=== PATIENT | female | born 2000 | race Hispanic/Latino ===

== ENCOUNTER → 2022-09-27 | Outpatient (CLI) | payer OTHER ==
--- NOTE | 2022-09-27 13:13 | DIREP ---
PROCEDURE:MRI - BRAIN WITHOUT CONTRAST COMPARISON:None. INDICATIONS:BRAIN LESIONS TECHNIQUE:A variety of imaging planes and parameters were utilized for visualization of suspected pathology in the brain. Images were performed without gadolinium contrast.. FINDINGS: CSF SPACES:Ventricles, cisterns, and sulci are appropriate for age. No hydrocephalus, subarachnoid hemorrhage, or mass. CEREBRUM:Within the left thalamus there is a focus of increased T2/FLAIR signal measuring 5 x 5 x 6 mm AP/transverse/craniocaudal (image 16 series 301 and FLAIR axial image 16). No restricted diffusion seen. No other additional lesions appreciated. Further evaluation limited without IV contrast. CEREBELLUM:No edema, hemorrhage, mass, acute infarction, or inappropriate atrophy. BRAINSTEM:No edema, hemorrhage, mass, acute infarction, or inappropriate atrophy. SKULL:No mass or other significant visible lesion. SINUSES:Limited views demonstrate no significant mucosal thickening or fluid. OTHER:None. CONCLUSION: 1. Left thalamic T2/FLAIR hyperintense lesion which is altogether nonspecific but atypical for patient this age. Further evaluation without IV gadolinium contrast is needed. Short-term follow-up will likely be needed depending on postcontrast imaging. Differential considerations are broad to include demyelinating lesion. Additional considerations felt less likely but not excluded include neoplastic process or even less likely infectious process. Dictated by: Ryan Moody M.D. on 09/27/2022 at 12:59 PM
== END | disposition home or self-care (01) ==
LOC: RAD 09:44
DX: G93.9 Disorder of brain, unspecified (principal)
CPT/HCPCS: 70551